=== PATIENT | female | born 1980 | race African-American/Black ===

== ENCOUNTER 2016-10-02 03:19 | Emergency (ER) | payer OTHER ==
[~2016-10-02] VITALS: Ht 172.7 cm; Wt 90.9 kg
[~2016-10-02 03:19] MED LIST: ACET-784 PO; CARV3 PO; FERR-89 PO; HYDR-3965 PO; ISOS1TAB2 PO; KDUR10 PO; LISI-661 PO; MAGOX PO; MULT-1238 PO
[2016-10-02 03:21] VITALS: BP 127/86
== END 2016-10-02 04:30 | disposition left against medical advice (07) ==
LOC: EMS 03:21
DX: Z53.21 Procedure and treatment not carried out due to patient leaving prior to being seen by health care provider (principal)
CPT/HCPCS: 93005

== ENCOUNTER 2019-03-18 10:43 | Emergency (ER) | payer OTHER ==
[~2019-03-18] VITALS: Ht 172.7 cm; Wt 86.4 kg
[2019-03-18] MEDS ORDERED: PERTUSS(ACELL),DIPH,TET VAC/PF 0.5 ML VIAL IM ONE (12:15)
[2019-03-18] MEDS ORDERED: CEPHALEXIN MONOHYDRATE 500 MG CAPSULE PO ONE (12:15)
[2019-03-18] MEDS ORDERED: BUPIVACAINE HCL/PF 0.25% 10 ML VIAL INJ ONE (12:15)
[2019-03-18] MEDS ORDERED: ACETAMINOPHEN/CODEINE 300-30 MG TABLET PO ONE (12:15)
[2019-03-18] MEDS ORDERED: IBUPROFEN 600 MG TABLET PO ONE (12:15)
[2019-03-18 13:59] VITALS: BP 115/98
== END 2019-03-18 14:01 | disposition home or self-care (01) ==
LOC: EMS 10:44
DX: S61.210A Laceration without foreign body of right index finger without damage to nail, initial encounter (principal); I10 Essential (primary) hypertension; F10.20 Alcohol dependence, uncomplicated; F17.210 Nicotine dependence, cigarettes, uncomplicated; F15.90 Other stimulant use, unspecified, uncomplicated; Z79.899 Other long term (current) drug therapy; Z98.890 Other specified postprocedural states; W26.8XXA Contact with other sharp object(s), not elsewhere classified, initial encounter; Y93.89 Activity, other specified; Y92.89 Other specified places as the place of occurrence of the external cause; Y99.8 Other external cause status
CPT/HCPCS: 12001; 90471; 90715; 99284; J3490; 12002